=== PATIENT | female | born 1970 ===

== ENCOUNTER 2017-01-03 17:27 | Emergency (ER) | payer OTHER, SELFPAY ==
[2017-01-03 18:06] VITALS: O2SAT 100
--- NOTE | 2017-01-03 19:37 | ED PDOC ---
HPI: Abdomen Time Seen by Provider: 01/03/17 19:13 Chief Complaint (Nursing): Abdominal Pain Chief Complaint (Provider): Abdominal Pain History Per: Patient History/Exam Limitations: no limitations Onset/Duration Of Symptoms: Days (x2 weeks), Intermittent Episodes, Worse Since (today) Outside of [place] travel?: No Current Symptoms Are (Timing): Still Present Severity: Moderate Location Of Pain/Discomfort: RUQ (and right lateral abdomen) Quality Of Discomfort: Unable To Describe Associated Symptoms: Chills. denies: Fever, Nausea, Vomiting, Diarrhea, Loss Of Appetite, Constipation, Urinary Symptoms, Other (no cough, rhinorrhea, extremity cramping/swelling) Additional Complaint(s): Henna Medina is a 46 year old female, with a past medical history inclusive of HTN and hypercholesterolemia, who presents to the ED on 01/03/17, accompanied by a family member, for the evaluation of moderate RUQ abdominal pain that she has experienced intermittently x2 weeks, worse today. Pain is also localized to the lateral aspect of the right abdomen and is unchanged by the ingestion of food. Associated chills also reported though patient denies fever, cough, rhinorrhea, nausea, vomiting, diarrhea, constipation, urinary symptoms or extremity cramping/swelling. No prior history of gallbladder or kidney issues. LMP was within the past month, reportedly normal. Has taken no analgesics prior to arrival. PMD: Clinic Past Medical History Reviewed: Historical Data, Nursing Documentation, Vital Signs Vital Signs: Last Vital Signs Temp 98.1 F 01/03/17 17:59 Pulse 74 01/03/17 17:59 Resp 14 01/03/17 17:59 BP 134/74 01/03/17 17:59 Pulse Ox 100 01/03/17 19:42 - Medical History PMH: HTN, Hypercholesterolemia - Surgical History Surgical History: (x2) - Family History Family History: States: Other (cancer (mother uterine, father throat)) - Social History Current smoker - smoking cessation education provided: Yes (occasional) Alcohol: Social Drugs: Denies - Home Medications Home Medications: Ambulatory Orders Medication Instructions Recorded Meloxicam [Mobic] 7.5 mg PO DAILY #14 tab 11/29/14 Oxycodone HCl/Acetaminophen 1 tab PO BID #10 tab 11/29/14 [Percocet 325 mg-5 mg] Cyclobenzaprine HCl [Flexeril] 10 mg PO BID PRN #12 tab 01/21/15 Ibuprofen [Motrin Tab] 800 mg PO Q6H PRN #20 tab 01/21/15 Dicyclomine [Bentyl] 20 mg PO BID PRN #30 tab 01/03/17 Omeprazole Magnesium [Prilosec Otc] 20 mg PO DAILY #30 tcp 01/03/17 - Allergies Allergies/Adverse Reactions: Allergies Allergy/AdvReac Type Severity Reaction Status Date / Time No Known Allergies Allergy Verified 01/03/17 17:59 Review of Systems ROS Statement: Except As Marked, All Systems Reviewed And Found Negative Constitutional: Positive for: Chills. Negative for: Fever ENT: Negative for: Nose Discharge, Throat Pain Cardiovascular: Negative for: Edema Respiratory: Negative for: Cough Gastrointestinal: Positive for: Abdominal Pain (RUQ, right lateral). Negative for: Vomiting, Diarrhea, Constipation, Hematochezia, Hematemesis Musculoskeletal: Negative for: Arm Pain, Leg Pain Physical Exam - Reviewed Nursing Documentation Reviewed: Yes Vital Signs Reviewed: Yes - Physical Exam Appears: Positive for: Non-toxic, In Acute Distress (mild painful) Head Exam: Positive for: ATRAUMATIC, NORMOCEPHALIC Skin: Positive for: Normal Color, Warm, Dry. Negative for: Jaundice Eye Exam: Positive for: Normal appearance, EOMI, PERRL. Negative for: Scleral icterus ENT: Positive for: Other (tacky mucous membranes). Negative for: Pharyngeal Erythema, Tonsillar Exudate, Tonsillar Swelling Neck: Positive for: Normal, Painless ROM, Supple Cardiovascular/Chest: Positive for: Regular Rate, Rhythm. Negative for: Edema, Murmur Respiratory: Positive for: Normal Breath Sounds. Negative for: Respiratory Distress Gastrointestinal/Abdominal: Positive for: Soft, Tenderness (RUQ w/(+) Aviles's) . Negative for: Mass, Guarding, Rebound Back: Positive for: Normal Inspection. Negative for: L CVA Tenderness, R CVA Tenderness Neurologic/Psych: Positive for: Alert, Oriented - Laboratory Results Result Diagrams: 01/03/17 20:10 01/03/17 20:10 - ECG O2 Sat by Pulse Oximetry: 100 (RA) Pulse Ox Interpretation: Normal Medical Decision Making Medical Decision Makin:13 Initial Impression: abdominal pain Differential diagnoses include but are not limited to cholelithiasis, cholecystitis Initial Plan: * US Abdomen, Complete * Labs * Lipase * PTT * PT * Upreg * Udip * Urinalysis * Urine Culture * Toradol 15mg IV * Reevaluation EXAM: US Abdomen Complete. CLINICAL HISTORY: 46 years old, female; Pain; Abdominal pain; Flank; Right upper quadrant (ruq); Patient HX: See worksheet; Additional info: Right flank pain TECHNIQUE: Real-time ultrasound of the abdomen (complete) with image documentation. COMPARISON: No relevant prior studies available. FINDINGS: Liver: Fatty infiltration. No mass. No intrahepatic ductal dilatation. Gallbladder: No gallstones. No wall thickening. No pericholecystic fluid. No sonographic Aviles's sign. Common bile duct: No dilatation. No stones. Pancreas: Unremarkable as visualized. Kidneys: Normal echogenicity. 1.2 x 1.1 x 1.2 cm LEFT renal cyst. 0.9 x 0.9 x 0.8 cm LEFT renal calculus. No hydronephrosis. Spleen: No splenomegaly. Aorta: Unremarkable. No aneurysm. Inferior vena cava: Unremarkable. Free fluid: No significant free fluid. IMPRESSION: 1. No acute findings. 2. Non-acute findings are described above. Thank you for allowing us to participate in the care of your patient. Dictated and Authenticated by: Regan Lucero MD 01/03/2017 9:45 PM Eastern Time ([place] & [place]) On reeval pt stable. DW pt findings and plan of care. Symptomatic treatment and f/u clinic. GI referral through clinic. Scribe Attestation: Documented by Stefania Lao, acting as a scribe for Maria Ines Roman MD. Provider Scribe Attestation: All medical record entries made by the Scribe were at my direction and personally dictated by me. I have reviewed the chart and agree that the record accurately reflects my personal performance of the history, physical exam, medical decision making, and the department course for this patient. I have also personally directed, reviewed, and agree with the discharge instructions and disposition. Disposition - Clinical Impression Clinical Impression: Abdominal pain Counseled Patient/Family Regarding: Studies Performed, Diagnosis, Need For Followup, Rx Given - Disposition Referrals: [facility] [Outside] - 01/04/17 Disposition: Routine/Home Disposition Time: 21:45 Condition: STABLE Prescriptions: Dicyclomine [Bentyl] 20 mg PO BID PRN #30 tab PRN Reason: abdominal pain Omeprazole Magnesium [Prilosec Otc] 20 mg PO DAILY #30 tcp Instructions: Abdominal Pain (ED) Print Language: ICELANDIC
[2017-01-03 19:51] LABS: RBC URINE 2 /hpf (0-3); URINE BILIRUBIN NEGATIVE (NEGATIVE); URINE BLOOD NEGATIVE (NEGATIVE); URINE CALCIUM OXALATE CRYSTALS RARE /hpf (<OCC); URINE COLOR YELLOW (YELLOW); URINE GLUCOSE (UA) NEG (Normal); URINE KETONE NEGATIVE (NEGATIVE); URINE LEUKOCYTE ESTERASE NEG Leu/uL (Negative); URINE PROTEIN NEGATIVE (NEGATIVE); URINE UROBILINOGEN 0.2-1.0 mg/dL (0.2-1.0)
[2017-01-03 20:34] LABS: BASO # 0.1 K/uL (0.0-0.2); BASO % 0.6 % (0.0-2.0); EOS # 0.3 K/uL (0.0-0.7); EOS % 2.4 % (0.0-4.0); HEMATOCRIT 38.7 % (34.0-47.0); LYMPH # 3.2 K/uL (1.0-4.3); LYMPH % 24.7 % (20.0-40.0); MEAN CELL VOLUME 84.6 fl (81.0-99.0); MEAN CORPUSCULAR HEMOGLOBIN 27.5 pg (27.0-31.0); MEAN CORPUSCULAR HGB CONC 32.5 g/dL (33.0-37.0); MEAN PLATELET VOLUME 8.2 fl (7.2-11.7); MONO # 0.6 K/uL (0.0-0.8); MONO % 4.2 % (0.0-10.0); NEUT # 8.9 K/uL (1.8-7.0); NEUT % 68.1 % (50.0-75.0); RED CELL DISTRIBUTION WIDTH 13.9 % (11.5-14.5); WHITE BLOOD COUNT 13.1 K/uL (4.8-10.8)
[2017-01-03 20:38] LABS: ALB/GLOB RATIO 1.1 (1.0-2.1); ALKALINE PHOSPHATASE 79 U/L (38-126); ALT/SGPT 71 U/L (9-52); AST/SGOT 59 U/L (14-36); BILIRUBIN,TOTAL 0.7 mg/dl (0.2-1.3); BLOOD UREA NITROGEN 11 mg/dl (7-17); CALCIUM 9.6 mg/dL (8.4-10.2); CARBON DIOXIDE 23 mmol/L (22-30); CHLORIDE 101 mmol/L (98-107); GFR AFRICAN-AMERICAN > 60; GLUCOSE,RANDOM 117 mg/dL (65-105); LIPASE 128 U/L (23-300); POTASSIUM 4.3 MMOL/L (3.6-5.0); SODIUM 142 mmol/l (132-148); TOTAL PROTEIN 8.9 G/DL (6.3-8.2)
[2017-01-03 21:08] LABS: PARTIAL THROMBOPLASTIN TIME 24.3 SECONDS (23.3-32.5)
--- NOTE | 2017-01-03 21:45 | US ---
EXAM: US Abdomen Complete. CLINICAL HISTORY: 46 years old, female; Pain; Abdominal pain; Flank; Right upper quadrant (ruq); Patient HX: See worksheet; Additional info: Right flank pain TECHNIQUE: Real-time ultrasound of the abdomen (complete) with image documentation. COMPARISON: No relevant prior studies available. FINDINGS: Liver: Fatty infiltration. No mass. No intrahepatic ductal dilatation. Gallbladder: No gallstones. No wall thickening. No pericholecystic fluid. No sonographic Aviles's sign. Common bile duct: No dilatation. No stones. Pancreas: Unremarkable as visualized. Kidneys: Normal echogenicity. 1.2 x 1.1 x 1.2 cm LEFT renal cyst. 0.9 x 0.9 x 0.8 cm LEFT renal calculus. No hydronephrosis. Spleen: No splenomegaly. Aorta: Unremarkable. No aneurysm. Inferior vena cava: Unremarkable. Free fluid: No significant free fluid. IMPRESSION: 1.No acute findings. 2.Non-acute findings are described above.
[2017-01-03 22:20] VITALS: BP 112/64; PULSE 67; RESP 18; TEMP 97.9
== END 2017-01-03 22:39 | disposition home or self-care (01) ==
LOC: H.ER 17:27
DX: R10.11 Right upper quadrant pain (principal); I10 Essential (primary) hypertension
CPT/HCPCS: 76700; 80053; 81003; 81025; 83690; 85025; 85610; 85730; 87086; 99285; J1885

== ENCOUNTER 2017-04-20 00:30 | Emergency (ER) | payer SELFPAY ==
[2017-04-20 00:56] VITALS: BP 118/79; PULSE 70; RESP 20; TEMP 98; O2SAT 99
--- NOTE | 2017-04-20 01:05 | ED PDOC ---
HPI: Back Time Seen by Provider: 04/20/17 00:48 Chief Complaint (Nursing): Upper Extremity Problem/Injury Chief Complaint (Provider): left upper back pain History Per: Patient History/Exam Limitations: no limitations Onset/Duration Of Symptoms: Hrs (1) Current Symptoms Are (Timing): Still Present Quality Of Discomfort: "Pain" Exacerbating Factor(s): Turning, Movement Additional History Per: Patient Additional Complaint(s): 46 y/o female presents for eval of left upper back pain x 1 hour. Patient states she woke up with the pain, worsened by movement. Denies known injury, numbness/weakness upper extremities, neck pain, chest pain, shortness of breath. No medication taken for pain relief thus far. Patient cleans for work, unknown obvious traumatic injury yesterday. Past Medical History Reviewed: Historical Data, Nursing Documentation, Vital Signs Vital Signs: Last Vital Signs Temp 98 F 04/20/17 00:53 Pulse 70 04/20/17 00:53 Resp 20 04/20/17 00:53 BP 118/79 04/20/17 00:53 Pulse Ox 99 04/20/17 00:53 - Medical History PMH: HTN, Hypercholesterolemia - Surgical History Surgical History: (x2) - Family History Family History: States: Unknown Family Hx - Home Medications Home Medications: Ambulatory Orders Medication Instructions Recorded Meloxicam [Mobic] 7.5 mg PO DAILY #14 tab 11/29/14 Oxycodone HCl/Acetaminophen 1 tab PO BID #10 tab 11/29/14 [Percocet 325 mg-5 mg] Cyclobenzaprine HCl [Flexeril] 10 mg PO BID PRN #12 tab 01/21/15 Ibuprofen [Motrin Tab] 800 mg PO Q6H PRN #20 tab 01/21/15 Dicyclomine [Bentyl] 20 mg PO BID PRN #30 tab 01/03/17 Omeprazole Magnesium [Prilosec Otc] 20 mg PO DAILY #30 tcp 01/03/17 Cyclobenzaprine [Cyclobenzaprine 10 mg PO BID PRN #10 tab 04/20/17 HCl] Naproxen [Naprosyn] 500 mg PO Q12 PRN #20 tablet 04/20/17 - Allergies Allergies/Adverse Reactions: Allergies Allergy/AdvReac Type Severity Reaction Status Date / Time No Known Allergies Allergy Verified 01/03/17 17:59 Review of Systems ROS Statement: Except As Marked, All Systems Reviewed And Found Negative Musculoskeletal: Positive for: Back Pain (left upper) Physical Exam - Reviewed Nursing Documentation Reviewed: Yes Vital Signs Reviewed: Yes - Physical Exam Appears: Positive for: Well, Non-toxic, Uncomfortable Head Exam: Positive for: ATRAUMATIC, NORMAL INSPECTION, NORMOCEPHALIC Cardiovascular/Chest: Positive for: Regular Rate, Rhythm Respiratory: Positive for: Normal Breath Sounds Back: Positive for: Muscle Spasm (left upper back medial to scapula tender to palpate). Negative for: L CVA Tenderness, R CVA Tenderness, Vertebral Tenderness, Decreased ROM Extremity: Positive for: Normal ROM Neurologic/Psych: Positive for: Alert, Oriented. Negative for: Motor/Sensory Deficits - ECG ECG: Positive for: Viewed By Me (reviewed by ED attending) ECG Rhythm: Positive for: Sinus Rhythm O2 Sat by Pulse Oximetry: 99 - Progress ED Course And Treament: ekg, analgesics On re-eval, patient states she is feeling better. Patient educated on findings, discharged with rx Naproxen, flexeril. Advised ashutosh mejía PMD 2-3 days. Return to ED for worsening/concerning symptoms. Disposition - Clinical Impression Clinical Impression: Upper back pain on left side - Patient ED Disposition Is Patient to be Admitted: No Counseled Patient/Family Regarding: Studies Performed, Diagnosis, Need For Followup, Rx Given - Disposition Disposition: Routine/Home Disposition Time: 04:10 Condition: IMPROVED Prescriptions: Cyclobenzaprine [Cyclobenzaprine HCl] 10 mg PO BID PRN #10 tab PRN Reason: Muscle Spasm Naproxen [Naprosyn] 500 mg PO Q12 PRN #20 tablet PRN Reason: Pain, Moderate (4-7) Instructions: Muscle Strain (ED) Print Language: SLOVAK
[2017-04-20] MEDS ORDERED: Oxycodone/Acetaminophen 5/325 mg Tab PO ONE (02:33)
--- NOTE | 2017-04-20 08:05 | CARD ---
APPROVED REPORT EKG Measurement Heart [id number] <Conclusion> Normal sinus rhythm Normal ECG
== END 2017-04-20 04:30 | disposition home or self-care (01) ==
LOC: H.ER 00:30
DX: M54.9 Dorsalgia, unspecified (principal); E78.00 Pure hypercholesterolemia, unspecified; I10 Essential (primary) hypertension
CPT/HCPCS: 81025; 93005; 96372; 99282; J1885